=== PATIENT | male | born 1970 | race Two or more races ===

== ENCOUNTER 2020-08-16 09:41 | Day surgery (SDC) | payer OTHER ==
[2020-08-16] MEDS ORDERED: OXYC1TAB9 PO (16:22)
[2020-08-16] MEDS ORDERED: DUI500 PO (16:22)
== END 2020-08-16 22:45 | disposition home or self-care (01) ==
LOC: CIR.AMB 09:41
PROVIDERS: ATTEND Orthopaedic Surgery Sports Medicine
DX: S92.351B Displaced fracture of fifth metatarsal bone, right foot, initial encounter for open fracture (principal); Z20.822 Contact with and (suspected) exposure to COVID-19